=== PATIENT | male | born 1975 | race Caucasian/White ===

== ENCOUNTER 2019-10-03 04:01 | Emergency (ER) | payer OTHER ==
[~2019-10-03] VITALS: Ht 177.8 cm; Wt 74.8 kg
[2019-10-03 04:30] VITALS: BP 122/80
[2019-10-03] MEDS ORDERED: Tetanus/Diptheria/Pertussis IM ONE (04:45)
[2019-10-03] MEDS ORDERED: Lidocaine 1% 10mg/ml/Epi 0.005mg/ml 30ml vial INJ ONE (04:51)
[2019-10-03] MEDS ORDERED: Lidocaine 1% Plain 30 ml INJ ONE ×2 (04:57→06:00)
[2019-10-03] MEDS ORDERED: Bacitracin Oint UD TOPIC ONE (05:45)
[2019-10-03] MEDS ORDERED: IBUPROFEN600 MG ORAL (05:45)
[2019-10-03] MEDS ORDERED: CEPHALEXIN500 MG ORAL (05:45)
[2019-10-03] MEDS ORDERED: BACITRACIN ZIN1 EACH TOPIC (05:45)
[2019-10-03 06:00] VITALS: BP 126/76
--- NOTE | 2019-10-03 06:40 | Emergency Room Report ---
History of Present Illness General Chief Complaint: Laceration Source: Patient Present Illness HPI Patient's 44-year-old male presented after increased pain to his left thumb. Patient reports being injured while attempting to cook. Cut himself with a kitchen knife. Reports accidental injury. Is right-hand dominant. Denies any numbness or pulsatile bleeding. Has been able to move his finger normally. Injury occurred just prior to arrival. Allergies: Coded Allergies: No Known Allergies (Unverified , 10/03/19) Patient History Reviewed Nursing Documentation: PMH: Agreed; PSxH: Agreed Nursing Documentation-PMH Past Medical History: No Stated History Review of Systems All Other Systems: negative except mentioned in HPI Physical Exam Vital Signs Date Time Temp Pulse Resp B/P (MAP) Pulse Ox O2 Delivery O2 Flow Rate FiO2 10/03/19 04:21 97.3 80 16 122/80 (94) 98 Room Air Sp02 EP Interpretation: reviewed, normal General Appearance: normal inspection, well appearing, no apparent distress, alert, GCS 15 Head: atraumatic ENT: normal ENT inspection, hearing grossly normal, normal voice Neck: normal inspection, full range of motion, supple, no bony tend Respiratory: normal inspection, lungs clear, normal breath sounds, no respiratory distress, no retraction, no wheezing Cardiovascular #1: regular rate, rhythm, no edema Gastrointestinal: normal inspection, normal bowel sounds, non tender, soft, no guarding, no hernia Genitourinary: no CVA tenderness Musculoskeletal: normal inspection, back normal, normal range of motion Neurologic: alert, responsive, speech normal, normal inspection Psychiatric: normal inspection, judgement/insight normal, mood/affect normal Skin: laceration - thumb laceration Procedures Laceration/Wound Repair Laceration/Wound Repair : Consent: Emergent Wound Location: upper extremity Wound's Depth, Shape: superficial Wound Length (cm): 2 Wound Explored: clean Irrigated w/ Saline (ccs): 20 Betadine Prep?: Yes Volume Anesthetic (ccs): 2 Wound Debrided: None Wound Repaired With: sutures Suture Size/Type: 4:0 Number of Sutures: 7 Layer Closure?: No Splint Applied?: Yes Patient Tolerated: Well Complications: None Medical Decision Making Diagnostic Impression: Primary Impression: Thumb laceration ER Course Patient presented for laceration. Differential diagnoses included foreign body , nerve injury, arterial injury among others. Laceration was irrigated and repaired. Patient tolerated this well. No foreign body was identified. Wound was explored and there is no evidence of tendon injury. The patient is advised to follow up with primary care doctor in 1-2 days. Patient is advised to return if any worsening condition or if any changes in status that are concerning. This report is dictated with [employer] chin strap maker software which may occasionally lead to discrepancies related to use of this software. Last Vital Signs Date Time Temp Pulse Resp B/P (MAP) Pulse Ox O2 Delivery O2 Flow Rate FiO2 10/03/19 06:00 97.3 70 16 126/76 99 Room Air Status: improved Disposition: HOME, SELF-CARE Condition: Stable Scripts Bacitracin Zinc* (BACITRACIN ZINC*) 1 Each Packet 1 APPLIC TOPIC THREE TIMES A DAY, #20 PACKET Prov: Huy Rashid MD 10/03/19 Cephalexin* (KEFLEX*) 500 Mg Capsule 500 MG ORAL EVERY 6 HOURS for 7 Days, CAP Prov: Huy Rashid MD 10/03/19 Ibuprofen* (MOTRIN*) 600 Mg Tablet 600 MG ORAL Q8H PRN for For Pain, #30 TAB 0 Refills Prov: Huy Rashid MD 10/03/19 Referrals: NOT CHOSEN IPA/,REFERRING (PCP) Patient Instructions: Laceration Care, Adult Additional Instructions: Follow up with your doctor for recheck in 2-3 days. Suture removal in 10 - 14 days. Return if worse. Huy Rashid MD Oct 03, 2019 06:40
== END 2019-10-03 06:00 | disposition home or self-care (01) ==
LOC: EMR 04:30
DX: S61.012A Laceration without foreign body of left thumb without damage to nail, initial encounter (principal); Z23 Encounter for immunization; W26.0XXA Contact with knife, initial encounter; Y92.9 Unspecified place or not applicable
CPT/HCPCS: 12001; 90471; 90715; 99283; J2001

== ENCOUNTER 2020-04-23 05:11 | Emergency (ER) | payer OTHER ==
[~2020-04-23] VITALS: Ht 177.8 cm; Wt 72.6 kg
[~2020-04-23 05:11] MED LIST: BACITRACIN ZIN1 EACH TOPIC; CEPHALEXIN500 MG ORAL; IBUPROFEN600 MG ORAL
--- NOTE | 2020-04-23 05:35 | NUR ---
ED Nurse Note: Patient walked into ED for c/o laceration to L thumb. Patient states he accidentally cut it while using a knife to cut lettuce this morning. Laceration noted to L thumb with active bleeding. Patient is applying pressure at this time. Patient does not know when his last tetanus vaccine was. He is aaox4, breathing is normal and unlabored.
[2020-04-23 05:37] VITALS: BP 117/77
--- NOTE | 2020-04-23 05:37 | Emergency Room Report ---
History of Present Illness General Chief Complaint: Laceration Source: Patient Present Illness HPI Is a 45-year-old male who is right-hand dominant. He presents with chief complaint of laceration to his left thumb. This occurred just prior to arrival. He was cutting lettuce and sliced the tip of his right thumb. Bleeding. No other injury. Tetanus unknown. Pain is 7 out of 10. Allergies: Coded Allergies: No Known Allergies (Unverified , 10/03/19) COVID-19 Screening Contact w/high risk pt: No Experienced COVID-19 symptoms?: No COVID-19 Testing performed HOOK TENDER: No Patient History Past Medical History: see triage record, old chart reviewed Past Surgical History: none Pertinent Family History: none Social History: Denies: smoking Immunizations: other Reviewed Nursing Documentation: PMH: Agreed; PSxH: Agreed Nursing Documentation-PMH Past Medical History: No Stated History Review of Systems Eye: Denies: eye pain, blurred vision ENT: Denies: ear pain, nose congestion, throat swelling Respiratory: Denies: cough, shortness of breath Cardiovascular: Denies: chest pain, palpitations Gastrointestinal: Denies: abdominal pain, diarrhea, nausea, vomiting Musculoskeletal: Denies: back pain, joint pain Skin: Denies: rash Neurological: Denies: headache, numbness Endocrine: Denies: increased thirst, increased urine Hematologic/Lymphatic: Denies: easy bruising All Other Systems: negative except mentioned in HPI Physical Exam Vital Signs Date Time Temp Pulse Resp B/P (MAP) Pulse Ox O2 Delivery O2 Flow Rate FiO2 04/23/20 05:26 98.4 79 16 117/77 (90) 97 Room Air Vitals normal Sp02 EP Interpretation: reviewed, normal General Appearance: well appearing, no apparent distress, alert Head: normocephalic, atraumatic Eyes: bilateral eye PERRL, bilateral eye EOMI ENT: hearing grossly normal, normal pharynx Neck: full range of motion, supple, no meningismus Respiratory: chest non-tender, lungs clear, normal breath sounds Cardiovascular #1: regular rate, rhythm, no murmur Gastrointestinal: normal bowel sounds, non tender, no mass, no organomegaly, no bruit, non-distended Musculoskeletal: back normal, normal range of motion, gait/station normal, other - Left thumb: There is a 2 cm laceration to the tip and pad of the finger. Full range of motion of the MCP and DIP joint. Psychiatric: mood/affect normal Procedures Laceration/Wound Repair Laceration/Wound Repair : Consent: Verbal Wound Location: head Wound's Depth, Shape: linear Wound Length (cm): 2 Irrigated w/ Saline (ccs): 500 Anesthesia: 1% Lidocaine Volume Anesthetic (ccs): 2 Wound Repaired With: sutures Suture Size/Type: 6:0, nylon Number of Sutures: 4 Patient Tolerated: Well Complications: None Progress Do digital block with 1% lidocaine with epinephrine. I placed 4 interrupted 6-0 nylon sutures. Two of which have to go through the nail to anchor it. Medical Decision Making Diagnostic Impression: Primary Impression: Thumb laceration Qualified Codes: S61.012A - Laceration without foreign body of left thumb without damage to nail, initial encounter ER Course Patient presents with a thumb laceration. Does not involve the nailbed. No foreign body. No tendon laceration. Will discharge home. Last Vital Signs Date Time Temp Pulse Resp B/P (MAP) Pulse Ox O2 Delivery O2 Flow Rate FiO2 04/23/20 05:26 98.4 79 16 117/77 (90) 97 Room Air Status: improved Disposition: HOME, SELF-CARE Condition: Stable Patient Instructions: Laceration Care, Adult Additional Instructions: Sutures out in 7 days. Keep wound clean. Return if symptoms worsen. Monty Oswald MD Apr 23, 2020 05:37
[2020-04-23] MEDS ORDERED: Tetanus/Diptheria/Pertussis IM ONE (05:45)
--- NOTE | 2020-04-23 05:45 | NUR ---
ED Nurse Note: ERMD bedside for laceration repair.
[2020-04-23 06:00] VITALS: BP 116/85
--- NOTE | 2020-04-23 06:00 | NUR ---
ER DISCHARGE NOTE: Patient is cleared to be discharged per ERMD, pt is aox4, on room air, with stable vital signs. pt was given dc instructions, pt was able to verbalize understanding, pt id band removed. pt is able to ambulate with steady gait. pt took all belongings.
== END 2020-04-23 06:00 | disposition home or self-care (01) ==
LOC: EMR 05:38
DX: S61.012A Laceration without foreign body of left thumb without damage to nail, initial encounter (principal); Z23 Encounter for immunization; W26.0XXA Contact with knife, initial encounter; Y92.9 Unspecified place or not applicable
CPT/HCPCS: 90471; 90715; 99283